=== PATIENT | male | born 1935 | race Caucasian/White ===

== ENCOUNTER 2021-10-18 03:07 | Observation (INO) ==
[2021-10-18] MEDS ORDERED: MORPHINE 2 MG/1 ML SYRINGE IV PRN (03:31)
[2021-10-18] MEDS ORDERED: ONDANSETRON 4 MG/2 ML VIAL IV PRN (03:31)
[2021-10-18 03:51] LABS: Basophils % 0.2 % (0.0-0.8); Eosinophils # 0.1 10*3/uL (0.0-0.87); Eosinophils % 0.5 % (0.00-10.9); Hematocrit 41.8 VOL% (42.0-52.0); Hemoglobin 13.8 GM/DL (14.0-18.0); Immature Granulocytes % 0.4 %; Immature Granulocytes Absolute 0.06 #; Lymphocytes # 1.5 10*3/uL (1.4-4.0); Lymphocytes % 11.2 % (21.2-54.2); Mean Corpuscular Volume 90.1 FL (87-102); Mean Platelet Volume 11.8 FL (9.6-12.0); Monocytes # 0.9 10*3/uL (0.11-0.8); Monocytes % 6.8 % (1.7-12.7); Neutrophils % 80.9 % (38.7-73.9); Platelet Count 141 T/CUMM (130-400); Red Blood Count 4.64 MC/CUMM (3.8-5.5); Red Cell Distribution Width 13.8 % (9.3-17.3); White Blood Count 13.7 T/CUMM (4-12)
[2021-10-18] MEDS: DEXTROSE 5% NACL 0.45% 1,000 ML IV SCH (03:54)
[2021-10-18 04:12] LABS: Albumin 3.6 G/DL (3.4-5.0); Bilirubin,Total 0.6 MG/DL (0.20-1.00); Calcium 8.6 MG/DL (8.5-10.1); Osmolality,Calculated 281.5 MOS/KG (273-304); Potassium 4.4 MMOL/L (3.5-5.1); Total Protein 7.1 G/DL (6.4-8.2)
[2021-10-18] MEDS: PIPERACILLIN/TAZOBACTAM 3,375 MG in SODIUM CHLORIDE 0.9% 100 ML IV SCH ×3 (06:31→21:40)
[2021-10-18] MEDS: PANTOPRAZOLE 40 MG VIAL IV SCH (10:25)
[2021-10-19] MEDS: PIPERACILLIN/TAZOBACTAM 3,375 MG in SODIUM CHLORIDE 0.9% 100 ML IV SCH (04:18)
[2021-10-19] MEDS: DEXTROSE 5% NACL 0.45% 1,000 ML IV SCH (04:19)
[2021-10-19 07:59] VITALS: BP 148/70
[2021-10-19] MEDS: PANTOPRAZOLE 40 MG VIAL IV SCH (08:51)
== END 2021-10-19 11:26 | disposition home or self-care (01) ==
LOC: EDUNIT# → EDBD → N.3E 03:07 → N.ED 03:07 → N.3E 04:40
PROVIDERS: ADMIT Surgery; ATTEND Surgery